=== PATIENT | female | born 1990 | race Hispanic/Latino ===

== ENCOUNTER 2019-02-17 19:09 | Emergency (ER) | payer SELFPAY ==
[~2019-02-17] VITALS: Ht 160 cm; Wt 96.6 kg
--- OUTSIDE RECORDS SUMMARY | 2019-02-17 19:11 | XMS REPORT ---
[facility] Address Unknown Phone Unavailable Care Team Providers [facility] Department Supervisor Name Role Phone Unavailable Unavailable Payers Payer Name Policy Type Policy Number Effective Date Expiration Date Problems This patient has no known problems. Allergies, Adverse Reactions, Alerts Allergy Name Allergy Type Status Severity Reaction(s) Onset Date Inactive Date Treating Clinician Comments No Known Allergies DA Active U 2017-12-11 00:00:00 Medications This patient has no known medications. Results Test Description Test Time Test Comments Text Results Atomic Results Result Comments PLACENTA THIRD TRIMESTER 2018-05-24 16:28:00 RUN DATE: 05/25/18 [facility] PAGE 1 RUN TIME: 726 Specimen Inquiry RUN USER: INTERFACE PATIENT: DAXA LIANG LOC: [facility] U #: [id number] AGE/SX: 27/F ROOM: [facility]48 RE05/13/18REG DR: Julio César Argueta MD : 91 BED: A DIS: 05/15/18 STATUS: DIS IN TLOC: SPEC #: [id number] RECD: 05/13/18 STATUS: TAHIR GREENWOOD #: [id number] MIKE: 05/13/18- SUBM DR: Julio César Argueta MD ENTERED: 05/16/18 SP TYPE: PLACIII OTHR DR: ORDERED: LEVEL V SURGICA CODES: [id number] - PLACENTA, NOS PROCEDURES: LEVEL V SURGICA (Incomplete) TISSUES: PLACENTA, NOS - PLACENTA CLINICAL HISTORY 27 year old, 36 weeks, L1, vaginal delivery, gestational diabetes, diet controlled, prematurity (kr) FINAL DIAGNOSIS Placenta, delivery: - placenta with third trimester morphology (482 gms), mean placental weight at 36 weeks - 457 gms - trivascular umbilical cord and membranes - free of inflammation Tissue code 1 CPT code(s): 42180 pkg/wpd GROSS DESCRIPTION TRANG OMIC SOURCE OF TISSUE (per Requisition): Placenta The specimen was received in a container labeled with the patient's name, unit number, and designated "placenta". The following attributes are observed: Cord insertion: 2 cm from margin Cord length: 36 cm Number of vessels: 3 Cord color: Blue-sanabria Other cord findings: None surface findings: Steel blue, wrinkled, glistening Vasculature: Displays unremarkable blood vasculature Membranes rupture site: 6 cm to margin Membrane color: Sanabria Other membrane findings: Thickened and opaque CONTINUED ON NEXT PAGE --------- RUN DATE: 05/25/18 [facility] PAGE 2 RUN TIME: 726 Specimen Inquiry RUN USER: INTERFACE SPEC #: [id number] PATIENT: DAXA LIANG #[id number] (Continued) --- GROSS DESCRIPTION (Continued) The trimmed placental weight: 482 gm Disk measurement: 21 x 17 x 3.4 cm in greatest dimension Accessory lobes: None Maternal surface: Lobulated and intact Parenchyma: Red, beefy, and spongy Parenchyma lesions: None Cassettes: A through D kd/danielle 05/16/18 @ 6884 MICROSCOPIC DESCRIPTION The placenta is composed of small vascular villi. The trivascular umbilical cord and membranes are free of inflammation. p kg/wpd Signed Summer Arteaga 05/24/18 1628 END OF REPORT
== END 2019-02-17 20:00 | disposition left against medical advice (07) ==
LOC: FSED 19:09
DX: S69.91XA Unspecified injury of right wrist, hand and finger(s), initial encounter (principal)

== ENCOUNTER 2022-08-18 20:04 | Emergency (ER) | payer SELFPAY ==
[~2022-08-18] VITALS: Ht 160 cm; Wt 96.6 kg
[2022-08-18] MEDS ORDERED: KETOROLAC TROMETHAMINE 30 MG/ML VIAL IV STA (21:02)
[2022-08-18] MEDS ORDERED: SODIUM CHLORIDE 0.9% 1000ML 1,000 ML IV SCH (21:15)
[2022-08-18] MEDS ORDERED: ONDANSETRON HCL INJ 2MG/ML 2ML 2 MG/ML VIAL IV STA (21:19)
[2022-08-18] MEDS ORDERED: IOPAMIDOL 370 MG/ML 100 ML INFUS..BTL INJ ONE (21:33)
[2022-08-18] MEDS ORDERED: SODIUM CHLORIDE 0.9% 1000ML 1,000 ML ONE (21:36)
[2022-08-18] MEDS ORDERED: ONDANSETRON HCL INJ 2MG/ML 2ML 2 MG/ML VIAL ONE (21:36)
[2022-08-18] MEDS ORDERED: KETOROLAC TROMETHAMINE 30 MG/ML VIAL ONE (21:36)
[2022-08-18] MEDS ORDERED: DICLOFENAC POTA50 MG PO (22:45)
[2022-08-18] MEDS ORDERED: ONDANSETRON ODT4 MG PO (22:46)
== END 2022-08-18 23:21 | disposition home or self-care (01) ==
LOC: FSED 20:30
DX: R10.31 Right lower quadrant pain (principal); N83.202 Unspecified ovarian cyst, left side; M54.50 Low back pain, unspecified; R11.0 Nausea
CPT/HCPCS: 74177; 80048; 80076; 81003; 81025; 85025; 99284; J1885; J2405; J7030; Q9967